=== PATIENT | male | born 1970 | race Caucasian/White ===

== ENCOUNTER 2018-01-04 21:18 | Observation (INO) | payer OTHER ==
[~2018-01-04] VITALS: Ht 177.8 cm; Wt 88.0 kg
[2018-01-04 21:27] VITALS: BP 162/86; PULSE 86; RESP 18; TEMP 98.6; O2SAT 98
[2018-01-04] MEDS ORDERED: LORA0.5T PO (21:35)
[2018-01-04 21:37] VITALS: BP 152/89; PULSE 80; RESP 16; O2SAT 96
[2018-01-04] MEDS ORDERED: SODIUM CHLOR 0.9% 1000 ML INJ 1,000 ML IV SCH (21:44)
[2018-01-04] MEDS ORDERED: ONDANSETRON ODT 4 MG TAB PO ONE (21:45)
[2018-01-04] MEDS ORDERED: SODIUM CHLORIDE 0.9% FLUSH 10 ML FLUSH IV FLUSH PRN (21:45)
[2018-01-04] MEDS ORDERED: MORPHINE SULFATE 8 MG/ML INJ IV PUSH ONE (21:45)
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
[2018-01-04 22:26] LABS: AUTOMATED NEUTROPHIL # 13.9 TH/MM3 (1.8-7.7); BASOPHIL # 0.1 TH/MM3 (0-0.2); BASOPHIL % 0.5 % (0.0-2.0); EOSINOPHIL # 0.1 TH/MM3 (0-0.4); EOSINOPHIL % 0.6 % (0.0-4.0); HEMATOCRIT 44.7 % (39.0-51.0); HEMOGLOBIN 15.3 GM/DL (13.0-17.0); LYMPH % 5.9 % (9.0-44.0); MEAN CELL VOLUME 90.4 FL (80.0-100.0); MEAN CORPUSCULAR HGB CONC 34.3 % (32.0-36.0); MEAN PLATELET VOLUME 9.1 FL (7.0-11.0); MONO % 6.7 % (0.0-8.0); MONOCYTE # 1.1 TH/MM3 (0-0.9); NEUT % 86.3 % (16.0-70.0); PLATELET COUNT 201 TH/MM3 (150-450); RED BLOOD COUNT 4.95 MIL/MM3 (4.50-5.90); WHITE BLOOD COUNT 16.1 TH/MM3 (4.0-11.0)
[2018-01-04 22:44] LABS: ALBUMIN 4.3 GM/DL (3.4-5.0); AST (GOT) 19 U/L (15-37); BICARBONATE 25.8 MEQ/L (21.0-32.0); BLOOD UREA NITROGEN 14 MG/DL (7-18); CALCIUM 9.3 MG/DL (8.5-10.1); CHLORIDE 103 MEQ/L (98-107); CREATININE 0.99 MG/DL (0.60-1.30); GLOMERULAR FILTRATION RATE 81 ML/MIN (>89); GLUCOSE,RANDOM 93 MG/DL (74-106); SODIUM (NA) 138 MEQ/L (136-145)
[2018-01-04 22:45] LABS: ALT (GPT) 31 U/L (12-78)
[2018-01-04 22:47] LABS: ALKALINE PHOSPHATASE 82 U/L (45-117); TOTAL BILIRUBIN ADULT 0.6 MG/DL (0.2-1.0)
[2018-01-04] MEDS ORDERED: DIATRIZOATE MEGLUM/DIATRIZOATE SOD 9 ML CUP ONE (23:10)
[2018-01-04 23:11] VITALS: O2SAT 96
[2018-01-05] MEDS ORDERED: IOHEXOL 350 MG/ML 10 ML VIAL (for RAD DIAG) IVCONTRAST ONE (00:20)
--- NOTE | 2018-01-05 00:32 | RADRPT ---
EXAM DATE/TIME: 01/05/2018 00:19 [place] COMPARISON: No previous studies available for comparison. INDICATIONS : Abdominal pain and elevated white count; rule out appendicitis. IV CONTRAST: 96 cc Omnipaque 350 (iohexol) IV ORAL CONTRAST: Prescribed oral contrast ingested. RADIATION DOSE: 13.46 CTDIvol (mGy) MEDICAL HISTORY : None SURGICAL HISTORY : Tonsillectomy. ENCOUNTER: Initial ACUITY: 1 day PAIN SCALE: 7/10 LOCATION: Right abdomen TECHNIQUE: Volumetric scanning of the abdomen and pelvis was performed. Using automated exposure control and ad justment of the mA and/or kV according to patient size, radiation dose was kept as low as reasonably achievable to obtain optimal diagnostic quality images. DICOM format image data is available electro nically for review and comparison. FINDINGS: LOWER LUNGS: The visualized lower lungs are clear. LIVER: Homogeneous density without lesion. There is no dilation of the biliary tree. No calcified gallston es. SPLEEN: Normal size without lesion. PANCREAS: Within normal limits. KIDNEYS: Normal in size and shape. There is no mass, stone or hydronephrosis. ADRENAL GLANDS: Within normal limits. VASCULAR: There is no aortic aneurysm. BOWEL/MESENTERY: The appendix is prominent measuring up to 1.1 cm with mild surrounding inflammatory change. There is no appendicolith. There are multiple loops of borderline dilated air-containing small bowel in the mi dabdomen with several small air-fluid levels. Gas and stool is noted segmentally in the colon. ABDOMINAL WALL: Within normal limits. RETROPERITONEUM: There is no lymphadenopathy. BLADDER: No wall thickening or mass. REPRODUCTIVE: Within normal limits. INGUINAL: There is no lymphadenopathy or hernia. MUSCULOSKELETAL: Within normal limits for patient age. CONCLUSION: 1. The appendix is mildly prominent with mild surrounding inflammatory change most characteristic of early appendicitis. 2. Nonspecific bowel gas pattern with borderline dilated air-containing small bowel with multiple air -fluid levels. This may represent an ileus. Dorian Olivas MD on January 05, 2018 at 0:27 Board Certified Radiologist. This report was verified electronically.
[2018-01-05] MEDS ORDERED: PIPERACIL-TAZO 4.5 GM PREMIX 100 ML IV ONE (00:45)
[2018-01-05] MEDS ORDERED: SODIUM CHLOR 0.9% 1000 ML INJ 1,000 ML IV SCH (00:45)
[2018-01-05] MEDS ORDERED: LACTATED RINGER'S 1000 ML INJ 1,000 ML IV SCH (01:15)
[2018-01-05] MEDS ORDERED: SODIUM CHLORIDE 0.9% FLUSH 10 ML FLUSH IV FLUSH PRN ×2 (01:15)
[2018-01-05] MEDS ORDERED: NALOXONE HCL 0.4 MG/ML AMP IV PUSH PRN (01:15)
[2018-01-05] MEDS ORDERED: MORPHINE SULFATE 4 MG/ML INJ IV PUSH PRN ×2 (01:15)
--- NOTE | 2018-01-05 02:01 | HHI.HP ---
HPI Service Critical Care Medicine Primary Care Physician Oskar Montoya M.D. Admission Diagnosis Acute Appendicitis Diagnosis: Chief Complaint: RLQ pain Travel History International Travel<30 Days: No Contact w/Intl Traveler <30 Da: No Traveled to Known Affected Are: No History of Present Illness This is a 47yM otherwise healthy who had gradual onset of RLQ abdominal pain and nausea which started this morning. in the ED, CT abd/pelvis demonstrates evidence of acute appendicitis. morphine relieves his pain. his pain is currently an 3/10. endorses fever/chills. discussed with Dr. Spear and plan to admit for appendectomy in the AM. no history of anesthesia complications. NPO x > 8 hrs for solid food and clear liquid. 1 permanent implant tooth. no chipped, false, loose, missing teeth. Review of Systems Constitutional: COMPLAINS OF: Fever, Chills, DENIES: Diaphoretic episodes, Fatigue Eyes: DENIES: Blurred vision Respiratory: DENIES: Cough, Wheezing, Hemoptysis, Sputum production, Shortness of breath Cardiovascular: DENIES: Chest pain, Palpitations, Syncope, Dyspnea on Exertion , PND Gastrointestinal: COMPLAINS OF: Abdominal pain, Nausea, DENIES: Black stools, Bloody stools, Constipation, Diarrhea, Vomiting Past Family Social History Allergies: Coded Allergies: No Known Allergies (Verified Allergy, Unknown, 01/05/18) Past Medical History anxiety Past Surgical History tonsillectomy Bunyan removal Reported Medications Lorazepam 0.5 Mg Tab 0.5 Mg PO DAILY PRN Active Ordered Medications See MAR Family History no family history of bleeding diatheses or anesthesia complications Social History endorses drinking "a few beers, a few times a week". denies tob. denies illicit drugs. Physical Exam Vital Signs Vital Signs Date Time Temp Pulse Resp B/P (MAP) Pulse Ox O2 Delivery O2 Flow Rate FiO2 01/04/18 23:11 96 01/04/18 21:37 80 16 152/89 (110) 96 Room Air 01/04/18 21:27 98.6 86 18 162/86 (111) 98 Physical Exam gen: middle-aged male, lying in bed, in distress due to abdominal pain heent: nc. at. perrl. mmm. neck: trachea midline. no jvd. chest: equal chest rise. room air. no accessory muscle use. cv: normal rate, regular rhythm. sinus. abd: soft, tender to palpation over RLQ. + guarding. + rebound. - heel tap. not frankly peritonitic. extr: distal pulses 2+. no edema. neuro: RASS 0. GCS 15. no focal deficits. Laboratory Laboratory Tests Test 01/04/18 22:06 White Blood Count 16.1 Red Blood Count 4.95 Hemoglobin 15.3 Hematocrit 44.7 Mean Corpuscular Volume 90.4 Mean Corpuscular Hemoglobin 31.0 Mean Corpuscular Hemoglobin Concent 34.3 Red Cell Distribution Width 13.0 Platelet Count 201 Mean Platelet Volume 9.1 Neutrophils (%) (Auto) 86.3 Lymphocytes (%) (Auto) 5.9 Monocytes (%) (Auto) 6.7 Eosinophils (%) (Auto) 0.6 Basophils (%) (Auto) 0.5 Neutrophils # (Auto) 13.9 Lymphocytes # (Auto) 1.0 Monocytes # (Auto) 1.1 Eosinophils # (Auto) 0.1 Basophils # (Auto) 0.1 CBC Comment DIFF FINAL Differential Comment Blood Urea Nitrogen 14 Creatinine 0.99 Random Glucose 93 Total Protein 8.0 Albumin 4.3 Calcium Level 9.3 Alkaline Phosphatase 82 Aspartate Amino Transf (AST/SGOT) 19 Alanine Aminotransferase (ALT/SGPT) 31 Total Bilirubin 0.6 Sodium Level 138 Potassium Level 4.0 Chloride Level 103 Carbon Dioxide Level 25.8 Anion Gap 9 Estimat Glomerular Filtration Rate 81 Lipase 156 Result Diagram: 01/04/18220501/04/182205 Caprini VTE Risk Assessment Caprini VTE Risk Assessment: Mod/High Risk (score >= 2) Caprini Risk Assessment Model Point Value = 1 Point Value = 2 Point Value = 3 Point Value = 5 Age 41-60 Minor surgery BMI > 25 kg/m2 Swollen legs Varicose veins or History of unexplained or recurrent spontaneous Oral contraceptives or hormone replacement Sepsis (< 1 month) Serious lung disease, including pneumonia (< 1 month) Abnormal pulmonary function Acute myocardial infarction Congestive heart failure (< 1 month) History of inflammatory bowel disease Medical patient at bed rest Age 61-74 Arthroscopic surgery Major open surgery (> 45 min) Laparoscopic surgery (> 45 min) Malignancy Confined to bed (> 72 hours) Immobilizing plaster cast Central venous access Age >= 75 History of VTE Family history of VTE Factor V Leiden Prothrombin [id number] Lupus anticoagulant Anticardiolipin antibodies Elevated serum homocysteine Heparin-induced thrombocytopenia Other congenital or acquired thrombophilia Stroke (< 1 month) Elective arthroplasty Hip, pelvis, or leg fracture Acute spinal cord injury (< 1 month) Prophylaxis Regimen Total Risk Factor Score Risk Level Prophylaxis Regimen 0-1 Low Early ambulation 2 Moderate Order ONE of the following: *Sequential Compression Device (SCD) *Heparin 5000 units SQ BID 3-4 Higher Order ONE of the following medications: *Heparin 5000 units SQ TID *Enoxaparin/Lovenox 40 mg SQ daily (WT < 150 kg, CrCl > 30 mL/min) *Enoxaparin/Lovenox 30 mg SQ daily (WT < 150 kg, CrCl > 10-29 mL/min) *Enoxaparin/Lovenox 30 mg SQ BID (WT < 150 kg, CrCl > 30 mL/min) AND/OR *Sequential Compression Device (SCD) 5 or more Highest Order ONE of the following medications: *Heparin 5000 units SQ TID (Preferred with Epidurals) *Enoxaparin/Lovenox 40 mg SQ daily (WT < 150 kg, CrCl > 30 mL/min) *Enoxaparin/Lovenox 30 mg SQ daily (WT < 150 kg, CrCl > 10-29 mL/min) *Enoxaparin/Lovenox 30 mg SQ BID (WT < 150 kg, CrCl > 30 mL/min) AND *Sequential Compression Device (SCD) Assessment and Plan Assessment and Plan Assessment: 47yM with acute appendicitis. admit. NPO for appendectomy in AM. type and screen. ivf. abx. Acute appendicitis obs status zosyn 3.375gm iv q8h general surgery consultation mivf NPO for OR in AM Abdominal Pain morphine 2mg iv q3h prn will ask hospitalist service to assist in further management of the patient. Code Status Full Code Montez Gallo MD January 05, 2018 02:01
[2018-01-05 02:03] VITALS: BP 140/80; PULSE 72; RESP 16; O2SAT 94
[2018-01-05 02:37] VITALS: BP 123/63; PULSE 72; RESP 16; TEMP 98.3; O2SAT 95
[2018-01-05] MEDS ORDERED: CHLORHEXIDINE GLUCONATE 2 % 1 PACK (2 CLOTHS) TOPICAL PRN (05:45)
[2018-01-05] MEDS ORDERED: POVIDONE IODINE 5% (ANTISEPSIS KIT) 4 APPLICATIONS EACH NARE PRN (05:45)
[2018-01-05] MEDS ORDERED: LACTATED RINGER'S 1000 ML IV PRN (05:45)
[2018-01-05] MEDS ORDERED: SODIUM CHLORID 0.9% 500 ML IV PRN (05:45)
[2018-01-05] MEDS ORDERED: METOPROLOL TARTRATE 25 MG TAB PO PRN (05:45)
[2018-01-05] MEDS ORDERED: INSULIN HUMAN REGULAR 1,000 UNITS/10 ML VIAL SQ PRN (05:45)
[2018-01-05] MEDS ORDERED: PIPERACIL-TAZO 3.375 GM PREMIX 50 ML IV SCH (06:00)
[2018-01-05] MEDS ORDERED: BUPIVACAINE/EPINEPHRINE 0.5% PF 30 ML VIAL ONE (06:32)
[2018-01-05] MEDS ORDERED: ACETAMINOPHEN 1000 MG/100 ML 100 ML IV ONE (06:49)
[2018-01-05 06:54] VITALS: BP 125/84; PULSE 77; RESP 16; TEMP 98.5; O2SAT 96
[2018-01-05] MEDS ORDERED: SODIUM CHLORIDE 0.9% FLUSH 10 ML FLUSH IV FLUSH SCH ×2 (09:00)
[2018-01-05] MEDS ORDERED: DO NOT ADM ANY ANTICOAGULANT DRUGS PRN (09:07)
[2018-01-05] MEDS ORDERED: MIDAZOLAM HCL 2 MG/2 ML VIAL ONE ×2 (09:13→09:17)
[2018-01-05] MEDS ORDERED: HYDR-3288 PO (09:15)
[2018-01-05] MEDS ORDERED: *morphine SULFATE 8 MG/ML PERIprocedure ONLY ONE (09:25)
[2018-01-05] MEDS ORDERED: ACETAMINOPHEN/HYDROcodone 325 MG/7.5 MG TAB PO PRN ×2 (09:30)
[2018-01-05 10:02] VITALS: BP 152/89; PULSE 68; RESP 16; TEMP 98.2; O2SAT 92
--- NOTE | 2018-01-05 10:03 | MB ---
cc: Dorian Spear MD DATE: 01/05/2018 REASON FOR CONSULTATION: Acute appendicitis. HISTORY OF PRESENT ILLNESS: The patient is a 47-year-old white male who woke up this morning and had developed abdominal diffuse pain. This is localized to the right lower quadrant and the patient came to the Emergency Department this past evening. CT of the abdomen and pelvis demonstrated evidence of acute appendicitis without perforation. PAST MEDICAL HISTORY: History of anxiety for which he takes lorazepam. PAST SURGICAL HISTORY: Includes tonsillectomy. Bunion removal on the left foot. MEDICATIONS: Currently include Lorazepam 0.5 mg p.o. every day p.r.n. SOCIAL HISTORY: The patient does not use any illicit drugs. He drinks a few beers a few times a week. He takes no other medications. He does not smoke. PHYSICAL EXAMINATION: GENERAL: Exam reveals an obese male lying in bed in no acute distress. VITAL SIGNS: BP 125/84, pulse 77, respirations 16, temperature 98.5, 96% saturation on room air. CHEST: Clear to auscultation. CARDIOVASCULAR: Reveals regular rate and rhythm. ABDOMEN: Soft with tenderness in the right lower quadrant with minimal guarding and no rebound. Pulses are intact. NEUROLOGIC: Nonfocal. LABORATORY DATA: Demonstrate WBCs of 16.1 with hemoglobin of 15.3 and platelets of 201,000. Chemistries are essentially within normal limits with slightly decreased GFR of 81. CT report is as indicated above with appendix measuring up to 1.1 cm with surrounding mild inflammatory change. There are some dilated air containing small bowel in the mid abdomen. It is thought that he might have a mild ileus. ASSESSMENT: Acute appendicitis without perforation. PLAN: Laparoscopic appendectomy, possible open appendectomy. I have discussed risks of the procedure with the patient and his including, but not limited to bleeding, infection, leakage, abscess formation, requiring drainage and adhesion formation requiring reoperation at any time in his lifetime. I have discussed remedies, consequences, alternatives and convalescence; he vocalized understanding and agrees to proceed. Dorian Spear MD MAF/TL , 09:09 AM , 10:02 AM
--- NOTE | 2018-01-05 10:19 | MP ---
cc: Dorian Spear MD DATE OF OPERATION: 01/05/2018 DATE OF PROCEDURE: 01/05/2018 PROCEDURE PERFORMED: Laparoscopic appendectomy. PREOPERATIVE DIAGNOSIS: Acute appendicitis. POSTOPERATIVE DIAGNOSIS: Acute appendicitis without perforation. ANESTHESIA: General endotracheal. SURGEON: Dorian Spear MD ESTIMATED BLOOD LOSS: 30 mL. FLUIDS: 1200 mL crystalloid. COMPLICATIONS: None. DRAINS: None. SPECIMENS: Appendix to pathology. PROCEDURE IN DETAIL: The patient was taken to the operating room, and placed on the operating table in the supine position. After an adequate level of general endotracheal anesthesia was achieved, the abdomen was prepped and draped in the usual fashion. Timeout was taken confirming the correct patient, site, and procedure to be performed. Skin and subcutaneous tissue was infiltrated with local anesthetic. An incision was made in the umbilicus and carried through the fascia sharply. The peritoneal cavity was directly visualized. A 12 mm balloon trocar was inserted and the balloon inflated. The patient was placed in Trendelenburg position. The abdomen was insufflated. A 5 mm 30-degree laparoscope was inserted. Two 5 mm trocars were then placed under direct vision with the first in the right lower quadrant and the second in the suprapubic region. Both entered the abdominal cavity under direct vision uneventfully. The appendix was seen to be in a retrocecal position and this was dissected from the pelvic wall. The mesoappendix was brought up and divided with the Harmonic scalpel. The appendix was ligated at the base with a 0 PDS Endoloop. The appendix was divided 1 cm distal to this with the Harmonic scalpel. The appendix was placed into an EndoCatch device and removed via the umbilical port while observing via the right lower quadrant 5 mm trocar site. The specimen was passed off the table. A small amount of bloody material was then aspirated and mesoappendix was reexamined. Two small bleeding points were controlled with the Harmonic scalpel. Further irrigation revealed no further bleeding. A small amount of irrigation fluid was aspirated from the pelvis and at this point, insufflation was discontinued. The 5 mm trocars were removed under direct vision. No bleeding was noted from any of the trocar sites during desufflation. When the abdomen was completely desufflated, the laparoscope and umbilical port were removed. The fascia was closed in the umbilicus with 0 Vicryl suture in a simple interrupted and lauzwn-on-bhgae fashion. The remaining local anesthetic was injected into the fascia and trocar sites. The skin was closed at each of the trocar sites with 4-0 Vicryl in an interrupted buried fashion. All wounds were dressed with Steri-Strips. The patient was extubated and taken back to the recovery room in stable condition. He tolerated the procedure well. MD MINNIE Rosa/MARIA D , 09:12 AM , 10:18 AM
--- NOTE | 2018-01-05 11:31 | HHI.DCPOC ---
Discharge Care Plan Diagnosis: (1) Acute appendicitis Goals to Promote Your Health * To prevent worsening of your condition and complications * To maintain your health at the optimal level Directions to Meet Your Goals Take your medications as prescribed Follow your dietary instruction Follow activity as directed Keep your appointments as scheduled Take your immunizations and boosters as scheduled If your symptoms worsen call your PCP, if no PCP go to Urgent Care Center or Emergency Room Smoking is Dangerous to Your Health. Avoid second hand smoke Call the 24-hour hour crisis hotline for domestic abuse at Leonard[facility] Fleming January 05, 2018 11:31 Nino Minor DO January 07, 2018 10:47
[2018-01-05] MEDS ORDERED: COLA100C5 PO (11:35)
--- NOTE | 2018-01-05 11:36 | HHI.DS ---
Discharge Summary Admission Date January 05, 2018 at 01:17 Discharge Date: January 05, 2018 Admitting Diagnosis Acute Appendicitis (1) Acute appendicitis Diagnosis: Principal ICD Codes: K35.80 - Unspecified acute appendicitis Status: Acute Consultants Dr. Spear, General surgery Dr. Gallo, [employer] Procedures Laparoscopic appendectomy with Dr. Spear 01/05/18 Brief History This is a 47yM otherwise healthy who had gradual onset of RLQ abdominal pain and nausea which started this morning. in the ED, CT abd/pelvis demonstrates evidence of acute appendicitis. morphine relieves his pain. his pain is currently an 3/10. endorses fever/chills. discussed with Dr. Spear and plan to admit for appendectomy in the AM. no history of anesthesia complications. NPO x > 8 hrs for solid food and clear liquid. 1 permanent implant tooth. no chipped, false, loose, missing teeth. CBC/BMP: 01/04/18 2206 01/04/18 2206 Significant Findings Laboratory Tests Test 01/04/18 22:06 White Blood Count 16.1 TH/MM3 (4.0-11.0) Neutrophils (%) (Auto) 86.3 % (16.0-70.0) Lymphocytes (%) (Auto) 5.9 % (9.0-44.0) Neutrophils # (Auto) 13.9 TH/MM3 (1.8-7.7) Monocytes # (Auto) 1.1 TH/MM3 (0-0.9) Estimat Glomerular Filtration Rate 81 ML/MIN (>89) Imaging Last Impressions Abdomen/Pelvis CT 01/04/184 Signed Impressions: Service Date/Time: Friday, January 05, 2018 00:19 - CONCLUSION: 1. The appendix is mildly prominent with mild surrounding inflammatory change most characteristic of early appendicitis. 2. Nonspecific bowel gas pattern with borderline dilated air-containing small bowel with multiple air-fluid levels. This may represent an ileus. Dorian Olivas MD PE at Discharge GENERAL: This is a well-nourished, well-developed patient, in no apparent distress. CARDIOVASCULAR: Regular rate and rhythm RESPIRATORY: Clear to auscultation. Breath sounds equal bilaterally. GASTROINTESTINAL: Abdomen soft, mild-tenderness at laparoscopic incision sites, nondistended. hypoactive bowel sounds MUSCULOSKELETAL: Extremities without clubbing, cyanosis, or edema. NEURO: Alert & Oriented x4 to person, place, time, situation. Moves all ext x4 Hospital Course Assessment: 47yM with acute appendicitis. Acute appendicitis obs status zosyn 3.375gm iv q8h pre-op general surgery consultation s/p Laparoscopic appendectomy Abdominal Pain morphine 2mg iv q3h prn Pt Condition on Discharge: Stable Discharge Disposition: Discharge Home Discharge Instructions DIET: Follow Instructions for: As Tolerated, No Restrictions Additional Diet Instructions: advance diet slowly per surgery recommendations Activities you can perform: Regular-No Restrictions, See Additionl Instruction Activities to Avoid: Lifting/Bending, Strenuous Activity Other Activity Instructions: actitivy restrictions per surgery Follow up Referrals: PCP Follow-up - [address] [facility] - 2 Weeks with Dorian Spear MD New Medications: Docusate Sodium (Colace) 100 Mg Capsule 100 MG PO BID for Prevent Constipation, #60 CAP 0 Refills Please take stool softeners while taking pain medication Hydrocodone-Acetaminophen ([place]) 7.5-325 mg Tab 1-2 TAB PO Q4H PRN for PAIN, #25 TAB 0 Refills Continued Medications: Lorazepam (Lorazepam) 0.5 Mg Tab 0.5 MG PO DAILY PRN for ANXIETY, TAB 0 Refills Additional Information Patient examined. Assessment and plan formulated with Leonarda Fleming PA-C. I agree with the above. Case d/w Surgery. No antibiotics upon discharge. Leonarda Fleming January 05, 2018 11:36 Nino Minor DO January 07, 2018 10:46
[2018-01-05 12:00] VITALS: BP 106/65; PULSE 75; RESP 16; TEMP 98.1; O2SAT 94
[2018-01-05] MEDS ORDERED: DEXAMETHASONE SOD PHOS 4 MG/ML VIAL IV ONE (12:00)
[2018-01-05] MEDS ORDERED: LIDOCAINE HCL 1% PF 5 ML SYRINGE OTHER ONE (12:00)
[2018-01-05] MEDS ORDERED: LACTATED RINGER'S 1000 ML INJ 1,000 ML IV ONE (12:00)
[2018-01-05] MEDS ORDERED: NEOSTIGMINE 5 MG/5 ML SYRINGE IV PUSH ONE (12:00)
[2018-01-05] MEDS ORDERED: ONDANSETRON HCL 4 MG/2 ML VIAL IV ONE (12:00)
[2018-01-05] MEDS ORDERED: KETOROLAC TROMETHAMINE 30 MG/ML (IVP) VIAL IV PUSH ONE (12:00)
[2018-01-05] MEDS ORDERED: PROPOFOL 200 MG/20 ML AMP IV ONE (12:00)
[2018-01-05] MEDS ORDERED: GLYCOPYRROLATE 1 MG/5 ML SYRINGE IV PUSH ONE (12:00)
[2018-01-05] MEDS ORDERED: ROCURONIUM INJ 50 MG/5 ML SYRINGE IV PUSH ONE (12:00)
== END 2018-01-05 15:56 | disposition home or self-care (01) ==
LOC: NEPE 21:18 → NEDA 01-05 01:17 → NEPFCDU 01-05 02:32 → N06A 01-05 10:10
PROVIDERS: ADMIT Hospitalist; ATTEND Hospitalist
DX: K35.80 Unspecified acute appendicitis (principal); K21.9 Gastro-esophageal reflux disease without esophagitis
CPT/HCPCS: 00840; 44970; 74177; 80053; 82948; 83690; 85025; 86850; 86900; 86901; 88304; 96361; 96365; 96375; 96376; 99285; G0378; J0131; J1100; J1885; J2250; J2270; J2405; J2543; J2710; J3010; J7030; J7120; Q9963; Q9967